=== PATIENT | female | born 1975 | race Caucasian/White ===

== ENCOUNTER → 2020-04-26 | Outpatient (CLI) | payer BC | LOC: EXRD 08:50 | DX: Z09 Encounter for follow-up examination after completed treatment for conditions other than malignant neoplasm (principal); Z86.2 Personal history of diseases of the blood and blood-forming organs and certain disorders involving the immune mechanism; Q89.3 Situs inversus | CPT/HCPCS: 71046 ==

== ENCOUNTER → 2021-02-12 | Outpatient (CLI) | payer BC | LOC: KOH-I 12:30 | DX: R39.11 Hesitancy of micturition (principal); Q89.3 Situs inversus; T85.43XA Leakage of breast prosthesis and implant, initial encounter | CPT/HCPCS: 74176 ==